=== PATIENT | female | born 1970 | race Caucasian/White ===

== ENCOUNTER 2016-06-05 05:23 | Day surgery (SDC) | payer BC ==
[2016-06-03 08:44] LABS: HEMATOCRIT 43.7 % (36.0-48.0)
[2016-06-03 08:49] LABS: PARTIAL THROMBO TIME 28.8 SEC (22.5-37.2); PROTIME (NOT ORD) 13.1 SEC (12.0-14.5)
[2016-06-03 08:58] LABS: BUN (BLOOD UREA NITROGEN) 7 MG/DL (6-23); CALCIUM, SERUM 9.2 MG/DL (8.5-10.4); CHLORIDE, SERUM 108 MMOL/L (96-112); CO2 (CARBON DIOXIDE) 26 MMOL/L (24-34); CREATININE 0.64 MG/DL (0.55-1.02); GFR AFRICAN AMERICAN 125 ML/MIN (>=60); GFR NON AFRICAN AMERICAN 108 ML/MIN (>=60); GLUCOSE, SERUM 83 MG/DL (60-99); POTASSIUM, SERUM 4.4 MMOL/L (3.5-5.3); SODIUM, SERUM 140 MMOL/L (135-148)
--- NOTE | ~2016-06-05 | OP ---
Record Of Operation [facility] [address] [place]. [address] NAME: ASIA MEAD : 70 STATUS : REG [facility]#: [id number] AGE: 45 ADM/REG DATE : 06/05/16 MR#: [id number] REPORT SERV DATE: 06/05/16 DICTATED BY: NATHANIEL MEJÍA. DATE: 06/05/16 REPORT STATUS : Draft TRANSCRIBED BY: MODL DATE: 06/05/16 DATE OF PROCEDURE: 06/05/2016 PREOPERATIVE DIAGNOSIS: Chronic tonsillitis. POSTOPERATIVE DIAGNOSIS: Chronic tonsillitis. OPERATIVE PROCEDURE PERFORMED: Tonsillectomy. INDICATIONS AND SIGNIFICANT HISTORY: The patient is a 45-year-old female with a significant history of multiple episodes of acute on chronic tonsillitis. She was felt to benefit from tonsillectomy and was scheduled for such. OPERATIVE PROCEDURE AND FINDINGS: After informed consent was obtained, the patient was brought to the operating room and placed on the operating table in the supine position, at which point general endotracheal anesthesia was induced by Anesthesia Service, and the bed was turned 90 degrees toward the digital computer operator. The Mynor-Srikanth mouth gag was inserted into the oral cavity and red rubber catheter in the left naris. A laryngeal mirror was used to inspect the nasopharynx where no substantial adenoid tissue was noted. Attention was turned toward the left tonsil, which was grasped at its superior pole, retracted toward midline, and dissected free of its tonsillar fossa using Bovie cautery. The process was repeated for the right tonsil. Hemostasis was then achieved throughout using suction Bovie cautery. After identifying no additional bleeding, the patient was turned back toward Anesthesia, aroused from anesthesia, and taken to the postanesthesia care unit in satisfactory condition. COMPLICATIONS: None. ESTIMATED BLOOD LOSS: Less than 5 mL. IV FLUIDS: Per Anesthesia. DLA/HALEY Nathaniel Mejía M.D. / [id number] CC: Georgi Carballo M.D.
[~2016-06-05 05:23] MED LIST: ADDERALL5 MG PO; ADVIL PO; ALIGN4 MG PO; PRAVACHOL80 MG PO
== END 2016-06-05 11:24 | disposition home or self-care (01) ==
LOC: SDC 05:23
PROVIDERS: Otolaryngology
PROC: 0CTPXZZ Resection of Tonsils, External Approach (ICD-10-PCS; principal; 2016-06-05 06:45)
DX: J35.1 Hypertrophy of tonsils (principal); F43.10 Post-traumatic stress disorder, unspecified; E78.5 Hyperlipidemia, unspecified; F17.210 Nicotine dependence, cigarettes, uncomplicated; Z98.51 Tubal ligation status; Z90.49 Acquired absence of other specified parts of digestive tract; Z79.899 Other long term (current) drug therapy; Z88.8 Allergy status to other drugs, medicaments and biological substances; Z88.1 Allergy status to other antibiotic agents; Z79.1 Long term (current) use of non-steroidal anti-inflammatories (NSAID); Z98.890 Other specified postprocedural states
CPT/HCPCS: 80048; 84703; 85014; 85018; 85610; 85730; 88304; A9270-GY; J0330; J1170; J2250; J2405; J2550; J3010